=== PATIENT | female | born 1985 | race Caucasian/White ===

== ENCOUNTER 2021-10-08 15:40 | Emergency (ER) | payer MEDICAID, OTHER, SELFPAY | END 2021-10-08 16:03 | disposition home or self-care (01) | LOC: NAV ERS 15:40 | DX: Z20.822 Contact with and (suspected) exposure to COVID-19 (principal); F17.210 Nicotine dependence, cigarettes, uncomplicated | CPT/HCPCS: 99283; U0003; U0005 ==